=== PATIENT | female | born 1950 | race Caucasian/White ===

== ENCOUNTER 2016-10-13 10:39 | Day surgery (SDC) | payer OTHER ==
[~2016-10-13] VITALS: Ht 154.9 cm; Wt 90.7 kg
[~2016-10-13 10:39] MED LIST: ATIVAN0.5 MG PO; B-12500 MC1 SL; BUSPAR5 MG PO; CALCIUM 500 MG1 EAC1 PO; CELEXA20 MG PO; FLEXERIL10 MG PO; LO-DOSE ASPIRIN81 M2 PO; NEURONTIN400 MG PO; PERCOCET 7.51 TABLET PO; PRAVACHOL40 MG PO; PROTONIX40 MG PO; ZANTAC300 MG PO; ZESTRIL20 MG PO
== END 2016-10-13 12:55 | disposition home or self-care (01) ==
LOC: PAIN 10:39 → SDC 11:45 → PAIN 11:45
DX: M54.16 Radiculopathy, lumbar region (principal); M51.9 Unspecified thoracic, thoracolumbar and lumbosacral intervertebral disc disorder; M47.896 Other spondylosis, lumbar region; R20.0 Anesthesia of skin; F41.1 Generalized anxiety disorder; M51.36 Other intervertebral disc degeneration, lumbar region
CPT/HCPCS: J1100; J2250; J3010

== ENCOUNTER 2016-11-12 10:44 | Day surgery (SDC) | payer OTHER ==
[~2016-11-12] VITALS: Ht 154.9 cm; Wt 88.5 kg
[~2016-11-12 10:44] MED LIST changes: +ASACOL HD800 MG PO; +COLESTID1 GM PO; +HYOSCYAMINE0.125 M2 PO; +PROBIOTIC1 EAC2 PO
== END 2016-11-12 14:35 | disposition home or self-care (01) ==
LOC: PAIN 10:44 → SDC 11:15 → PAIN 14:35
PROC: 3E0S33Z Introduction of Anti-inflammatory into Epidural Space, Percutaneous Approach (ICD-10-PCS; principal; 2016-11-12)
DX: M54.16 Radiculopathy, lumbar region (principal); F41.9 Anxiety disorder, unspecified; M75.41 Impingement syndrome of right shoulder; M12.88 Other specific arthropathies, not elsewhere classified, other specified site; M51.36 Other intervertebral disc degeneration, lumbar region; Z79.82 Long term (current) use of aspirin; F17.200 Nicotine dependence, unspecified, uncomplicated; I10 Essential (primary) hypertension; E78.5 Hyperlipidemia, unspecified
CPT/HCPCS: J1100; J2250; J3010

== ENCOUNTER 2017-09-06 09:25 | Day surgery (SDC) | payer OTHER ==
[~2017-09-06] VITALS: Ht 154.9 cm; Wt 90.7 kg
[~2017-09-06 09:25] MED LIST changes: +PERCOCET 10/1 TABLET PO; -PERCOCET 7.51 TABLET PO; +RECLAST5 MG/100 M IV
== END 2017-09-06 11:43 | disposition home or self-care (01) ==
LOC: PAIN 09:25 → SDC 10:15 → PAIN 11:43
DX: M47.26 Other spondylosis with radiculopathy, lumbar region (principal); M51.16 Intervertebral disc disorders with radiculopathy, lumbar region; G89.29 Other chronic pain; M54.5 Low back pain; M48.061 Spinal stenosis, lumbar region without neurogenic claudication; M25.551 Pain in right hip; M25.552 Pain in left hip; M41.9 Scoliosis, unspecified; M81.0 Age-related osteoporosis without current pathological fracture; I10 Essential (primary) hypertension; F41.9 Anxiety disorder, unspecified; E78.5 Hyperlipidemia, unspecified; F17.200 Nicotine dependence, unspecified, uncomplicated; Z79.891 Long term (current) use of opiate analgesic; Z79.82 Long term (current) use of aspirin
CPT/HCPCS: J1100; J2250; J3010

== ENCOUNTER 2017-10-07 09:28 | Day surgery (SDC) | payer OTHER ==
[~2017-10-07] VITALS: Ht 154.9 cm; Wt 90.7 kg
== END 2017-10-07 10:35 | disposition home or self-care (01) ==
LOC: PAIN 09:28 → SDC 10:15 → PAIN 10:15
DX: M47.26 Other spondylosis with radiculopathy, lumbar region (principal); M51.16 Intervertebral disc disorders with radiculopathy, lumbar region; G89.29 Other chronic pain; M48.061 Spinal stenosis, lumbar region without neurogenic claudication; M75.41 Impingement syndrome of right shoulder; M41.9 Scoliosis, unspecified; M81.0 Age-related osteoporosis without current pathological fracture; F17.200 Nicotine dependence, unspecified, uncomplicated; I10 Essential (primary) hypertension; E78.5 Hyperlipidemia, unspecified; F41.9 Anxiety disorder, unspecified; Z79.82 Long term (current) use of aspirin; Z79.891 Long term (current) use of opiate analgesic
CPT/HCPCS: J1100; J2250; J3010

== ENCOUNTER 2017-12-16 09:20 | Day surgery (SDC) | payer OTHER ==
[~2017-12-16] VITALS: Ht 154.9 cm; Wt 90.3 kg
== END 2017-12-16 12:10 | disposition home or self-care (01) ==
LOC: PAIN 09:20 → SDC 10:00 → PAIN 10:00
DX: M47.816 Spondylosis without myelopathy or radiculopathy, lumbar region (principal); M51.16 Intervertebral disc disorders with radiculopathy, lumbar region; M46.96 Unspecified inflammatory spondylopathy, lumbar region; M48.061 Spinal stenosis, lumbar region without neurogenic claudication; M81.0 Age-related osteoporosis without current pathological fracture; M75.51 Bursitis of right shoulder; F17.200 Nicotine dependence, unspecified, uncomplicated; Z79.891 Long term (current) use of opiate analgesic; Z79.82 Long term (current) use of aspirin
CPT/HCPCS: J1030; J2250; S0020

== ENCOUNTER 2017-12-23 09:22 | Day surgery (SDC) | payer OTHER ==
[~2017-12-23] VITALS: Ht 154.9 cm; Wt 90.3 kg
== END 2017-12-23 10:55 | disposition home or self-care (01) ==
LOC: PAIN 09:22
DX: M47.816 Spondylosis without myelopathy or radiculopathy, lumbar region (principal); M51.16 Intervertebral disc disorders with radiculopathy, lumbar region; M48.061 Spinal stenosis, lumbar region without neurogenic claudication; M75.51 Bursitis of right shoulder; I10 Essential (primary) hypertension; K21.9 Gastro-esophageal reflux disease without esophagitis; F17.200 Nicotine dependence, unspecified, uncomplicated; Z79.82 Long term (current) use of aspirin
CPT/HCPCS: J1030; J2250; S0020

== ENCOUNTER 2018-03-10 08:58 | Day surgery (SDC) | payer OTHER ==
[~2018-03-10] VITALS: Ht 154.9 cm; Wt 90.3 kg
[2018-03-10 10:56] LABS: CHLORIDE 110 MEQ/L (99-109); CREATININE 1.1 MG/DL (0.6-1.3); GFR ESTIMATE (CALCULATED) 53 mL/min/; GLUCOSE 93 mg/dL (70-99); POTASSIUM 4.6 MEQ/L (3.7-5.4); SODIUM 139 MEQ/L (136-147); UREA NITROGEN (BUN) 24 mg/dL (9-23)
== END 2018-03-10 12:05 | disposition home or self-care (01) ==
LOC: PAIN 08:58 → SDC 10:15 → PAIN 12:05
PROVIDERS: Anesthesiology Pain Medicine
DX: M51.16 Intervertebral disc disorders with radiculopathy, lumbar region (principal); M48.061 Spinal stenosis, lumbar region without neurogenic claudication; M75.51 Bursitis of right shoulder; I10 Essential (primary) hypertension; K21.9 Gastro-esophageal reflux disease without esophagitis; Z79.82 Long term (current) use of aspirin; Z79.891 Long term (current) use of opiate analgesic; F17.200 Nicotine dependence, unspecified, uncomplicated
CPT/HCPCS: 80048; J1100; J2250